=== PATIENT | female | born 1930 | race Caucasian/White ===

== ENCOUNTER 2017-12-05 11:04 | Observation (INO) | payer MEDICARE, BC ==
--- NOTE | 2017-12-05 12:09 | EDM.PDOC ---
ED HPI GENERAL MEDICAL PROBLEM - General Chief Complaint: General Stated Complaint: SOB/RETAINING FLUID/BREASTS OOZING Time Seen by Provider: 12/05/17 12:03 Source of Information: Reports: Patient History Limitations: Reports: No Limitations - History of Present Illness INITIAL COMMENTS - FREE TEXT/NARRATIVE: pt arrived with a increase in sob and having induration in the left breast. She has gotten much weaker Pt has drainage coming from the breast. She has pain in left elebow. Onset: Gradual, Other ( According to the family they feel this was not apparent 2 weeks ago. ) Duration: Day(s): Location: Reports: Other (pt is very sob and she has increasd swelling f thr legs. ) Associated Symptoms: Reports: Shortness of Breath, Weakness - Related Data Allergies Allergy/AdvReac Type Severity Reaction Status Date / Time No Known Allergies Allergy Verified 12/05/17 11:33 Home Meds: Home Meds Albuterol [Proair HFA] 1 - 2 puff IH Q4H PRN 09/06/15 [History] Aspirin [Ecotrin] 81 mg PO QAM 09/06/15 [History] Calcium Carbonate/Vitamin D3 [Calcium 500-Vit D3 200 Caplet] 1 tab PO BID [History] Lisinopril 20 mg PO QAM 09/06/15 [History] Metoprolol Succinate [Toprol XL 100mg] 100 mg PO QAM 09/06/15 [History] Furosemide [Lasix] 40 mg PO DAILY #30 tablet 12/06/17 [Rx] LORazepam [Ativan ORAL Concentrate 1MG/0.5 ML U/D] 0.5 mg PO Q2H PRN #15 ml [Rx] Melatonin 9 mg PO BEDTIME #90 tablet 12/06/17 [Rx] Morphine [Morphine 10 MG/0.5 ML Oral Syringe] 2.5 - 5 mg SL Q1H PRN #15 ml 12/06 [Rx] Past Medical History HEENT History: Reports: Impaired Vision, Macular Degeneration Other Respiratory History: o2 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: , Other (See Below) Other OB/BYN History: hysterectomy Musculoskeletal History: Reports: Arthritis Other Musculoskeletal History: hands arthritic Psychiatric History: Reports: Anxiety, Depression - Past Surgical History HEENT Surgical History: Reports: Cataract Surgery, Other (See Below) Other HEENT Surgeries/Procedures: two eye surgeries and receives shots in her left eye Social & Family History - Tobacco Use Smoking Status *Q: Former Smoker Years of Tobacco use: 60 Packs/Tins Daily: 1 Used Tobacco, but Quit: Yes Month Tobacco Last Used: 8 years ago Second Hand Smoke Exposure: No - Caffeine Use Caffeine Use: Reports: None - Recreational Drug Use Recreational Drug Use: No ED ROS GENERAL - Review of Systems Review Of Systems: See Below Constitutional: Reports: Weakness HEENT: Reports: No Symptoms Respiratory: Reports: Shortness of Breath, Cough Cardiovascular: Reports: No Symptoms Endocrine: Reports: No Symptoms GI/Abdominal: Reports: No Symptoms : Reports: No Symptoms Musculoskeletal: Reports: No Symptoms Skin: Reports: No Symptoms Neurological: Reports: No Symptoms Psychiatric: Reports: Depression, Other ( sleeping lot. ) ED EXAM, GENERAL - Physical Exam Exam: See Below Free Text/Narrative:: pt arrived with increased sob. She has a red appearing left breast which is hard and indurated. She has been much weaker and she is sleeping alot. Exam Limited By: Other (pt is not able to give alot of history.) General Appearance: Alert, Moderate Distress Ears: Normal TMs Nose: Normal Inspection Throat/Mouth: Normal Inspection Head: Atraumatic Neck: Normal Inspection Respiratory/Chest: Other (pt has a large breast mass which is firm and indurated. it does feel warm and looks redish. ) Cardiovascular: Regular Rate, Rhythm GI/Abdominal: Soft, Non-Tender, Other (pt has been having looser stools. ) (Female) Exam: Deferred Rectal (Female) Exam: Deferred Back Exam: Normal Inspection Extremities: Pedal Edema Neurological: Alert, Oriented, Normal Cognition, Other (pt falls asleep easily. ) Psychiatric: Depressed Mood, Other ( sleeps alot. ) Course - Vital Signs Last Recorded V/S: Last Vital Signs Temp 36.9 C 12/07/17 11:00 Pulse 80 12/07/17 11:00 Resp 18 12/07/17 11:00 BP 118/64 12/07/17 11:00 Pulse Ox 94 L 12/07/17 11:00 - Orders/Labs/Meds Labs: Laboratory Tests 12/05/17 12/05/17 12/05/17 Range/Units 11:45 11:47 11:47 WBC 11.3 H (4.5-11.0) K/uL RBC 3.93 (3.30-5.50) M/uL Hgb 12.3 (12.0-15.0) g/dL Hct 38.6 (36.0-48.0) % MCV 98 (80-98) fL MCH 31 (27-31) pg MCHC 32 (32-36) % Plt Count 330 (150-400) K/uL Neut % (Auto) 85 H (36-66) % Lymph % (Auto) 10 L (24-44) % [place] % (Auto) 5 (2-6) % Eos % (Auto) 0 L (2-4) % Baso % (Auto) 0 (0-1) % Puncture Site ABG pH (7.350-7.450) ABG pCO2 (35.0-42.0) mmHg ABG pO2 (75.0-100.0) mmHg ABG HCO3 (22.0-26.0) mmol/L ABG Total CO2 (21.0-25.0) mmol/L ABG O2 Saturation (95.0-98.0) % ABG O2 Content (15.0-23.0) %vol ABG Base Excess mm/L ABG Hemoglobin (12.0-16.0) g/dL ABG Oxyhemoglobin % ABG Carboxyhemoglobin (0.0-1.6) % ABG Methemoglobin % [place] Test O2 Delivery Device Oxygen Flow Rate L Sodium 143 (140-148) mmol/L Potassium 4.7 (3.6-5.2) mmol/L Chloride 108 (100-108) mmol/L Carbon Dioxide 31 (21-32) mmol/L Anion Gap 3.7 L (5.0-14.0) mmol/L BUN 56 H (7-18) mg/dL Creatinine 2.1 H (0.6-1.0) mg/dL Est Cr Clr Drug Dosing 15.68 mL/min Estimated GFR (MDRD) 22 L (>60) Glucose 124 H (74-106) mg/dL Calcium 11.1 H (8.5-10.1) mg/dL Total Bilirubin 0.3 (0.2-1.0) mg/dL AST 44 H (15-37) U/L ALT 37 (12-78) U/L Alkaline Phosphatase 74 (46-116) U/L C-Reactive Protein 4.01 H (0.0-0.3) mg/dL NT-Pro-B Natriuret Pep 2825 H (5-450) pg/mL Total Protein 6.4 (6.4-8.2) g/dL Albumin 2.8 L (3.4-5.0) g/dL Globulin 3.6 H (2.3-3.5) g/dL Albumin/Globulin Ratio 0.8 L (1.2-2.2) 12/05/17 Range/Units 12:41 WBC (4.5-11.0) K/uL RBC (3.30-5.50) M/uL Hgb (12.0-15.0) g/dL Hct (36.0-48.0) % MCV (80-98) fL MCH (27-31) pg MCHC (32-36) % Plt Count (150-400) K/uL Neut % (Auto) (36-66) % Lymph % (Auto) (24-44) % [place] % (Auto) (2-6) % Eos % (Auto) (2-4) % Baso % (Auto) (0-1) % Puncture Site Rt radial ABG pH 7.343 L (7.350-7.450) ABG pCO2 59.2 H (35.0-42.0) mmHg ABG pO2 80.8 (75.0-100.0) mmHg ABG HCO3 31.3 H (22.0-26.0) mmol/L ABG Total CO2 28.8 H (21.0-25.0) mmol/L ABG O2 Saturation 95.1 (95.0-98.0) % ABG O2 Content 15.7 (15.0-23.0) %vol ABG Base Excess 4.7 mm/L ABG Hemoglobin 11.8 L (12.0-16.0) g/dL ABG Oxyhemoglobin 93.8 % ABG Carboxyhemoglobin 0.8 (0.0-1.6) % ABG Methemoglobin 0.6 % [place] Test Pass O2 Delivery Device Nasal cannula Oxygen Flow Rate 2 L Sodium (140-148) mmol/L Potassium (3.6-5.2) mmol/L Chloride (100-108) mmol/L Carbon Dioxide (21-32) mmol/L Anion Gap (5.0-14.0) mmol/L BUN (7-18) mg/dL Creatinine (0.6-1.0) mg/dL Est Cr Clr Drug Dosing mL/min Estimated GFR (MDRD) (>60) Glucose (74-106) mg/dL Calcium (8.5-10.1) mg/dL Total Bilirubin (0.2-1.0) mg/dL AST (15-37) U/L ALT (12-78) U/L Alkaline Phosphatase (46-116) U/L C-Reactive Protein (0.0-0.3) mg/dL NT-Pro-B Natriuret Pep (5-450) pg/mL Total Protein (6.4-8.2) g/dL Albumin (3.4-5.0) g/dL Globulin (2.3-3.5) g/dL Albumin/Globulin Ratio (1.2-2.2) Meds: Medications Discontinued Medications Generic Name Dose Route Start Last Admin Trade Name Freq PRN Reason Stop Dose Admin Acetaminophen 650 mg 12/05/17 15:50 Tylenol PO Q4H PRN Pain (Mild 1-3)/fever Albuterol 2.5 mg 12/05/17 15:50 12/06/17 02:19 Proventil Neb Soln NEB 2.5 mg Q4H PRN Administration Shortness Of Breath/wheezing Aspirin 81 mg 12/06/17 09:00 12/07/17 08:40 Halfprin PO 81 mg QAM AIMEE Administration Furosemide 60 mg 12/05/17 12:25 12/05/17 12:51 Lasix IVPUSH 12/05/17 12:26 60 mg ONETIME ONE Administration Furosemide 60 mg 12/06/17 08:00 12/06/17 08:42 Lasix IVPUSH 12/06/17 08:01 60 mg ONETIME ONE Administration Furosemide 40 mg 12/07/17 09:00 12/07/17 08:41 Lasix PO 40 mg DAILY AIMEE Administration Lisinopril 20 mg 12/06/17 09:00 12/07/17 08:41 Prinivil PO 20 mg QAM AIMEE Administration Lorazepam 0.5 mg 12/05/17 15:50 12/05/17 22:16 Ativan Oral Concentrate 1mg/0.5 Ml U/D PO 0.5 mg Q2H PRN Administration Anxiety Magnesium Hydroxide 30 ml 12/05/17 15:50 Milk Of Magnesia PO Q12H PRN Constipation Melatonin 9 mg 12/06/17 21:00 12/06/17 22:22 Melatonin PO 9 mg BEDTIME AIMEE Administration Metoprolol Succinate 100 mg 12/06/17 09:00 12/06/17 13:33 Toprol Xl PO Not Given QAM AIMEE Morphine Sulfate 0 mg 12/05/17 15:50 12/06/17 23:57 Morphine 10 Mg/0.5 Ml Oral Syringe PO 5 mg Q1H PRN Administration Pain Ondansetron HCl 4 mg 12/05/17 15:50 Zofran Odt PO Q6H PRN Nausea able to take PO Metoprolol Succinate 0 each 12/07/17 09:00 12/07/17 08:41 100 Mg Tab.ErPom* PO 1 each * QAM AIMEE Administration Polyethylene Glycol 17 gm 12/05/17 15:50 Miralax PO DAILY PRN Constipation Senna/Docusate Sodium 1 tab 12/05/17 15:50 Senna Plus PO BID PRN Constipation Sodium Chloride 10 ml 12/05/17 12:24 12/05/17 12:50 Saline Flush FLUSH 10 ml ASDIRECTED PRN Administration Keep Vein Open Sodium Chloride 10 ml 12/05/17 15:50 Saline Flush FLUSH ASDIRECTED PRN Keep Vein Open - Re-Assessments/Exams Free Text/Narrative Re-Assessment/Exam: 12/05/17 13:04 pt has increased creatnine at 2.1. She has a chest xray which is difficult to evaluate because of the large breast mass. a lateral will be obtained. She has a high bnp and she has the borderline renal funtion. Her crp is elevated. 12/05/17 13:08 Departure - Departure Time of Disposition: 13:10 Disposition: Admitted As Inpatient 64 Condition: Fair Clinical Impression: Breast CA, CHF (congestive heart failure), Renal insufficiency - Discharge Information
[2017-12-05] MEDS ORDERED: Sodium Chloride 0.9% 10 ML Syringe FLUSH PRN ×2 (12:24→15:50)
[2017-12-05] MEDS ORDERED: Furosemide 40 MG/4 ML VIAL IVPUSH ONE (12:25)
[2017-12-05] MEDS ORDERED: Magnesium Hydroxide 400 MG/5 ML Susp 30 ML Cup PO PRN (15:50)
[2017-12-05] MEDS ORDERED: Polyethylene Glycol 3350 Powder 17 GM Packet PO PRN (15:50)
[2017-12-05] MEDS ORDERED: LORazepam ORAL Concentrate 1MG/0.5ML U/D PO PRN (15:50)
[2017-12-05] MEDS ORDERED: Albuterol 0.083% 2.5 MG/3 ML Neb Soln NEB PRN (15:50)
[2017-12-05] MEDS ORDERED: Ondansetron 4 MG Tab.DIS PO PRN (15:50)
[2017-12-05] MEDS ORDERED: Acetaminophen 325 MG Tab PO PRN (15:50)
--- NOTE | 2017-12-05 15:52 | PCM.HP ---
H&P History of Present Illness - General Date of Service: 12/05/17 Admit Problem/Dx: Admission Diagnosis/Problem Admission Diagnosis/Problem Edema Source of Information: Patient, Family, Provider, RN Notes Reviewed History Limitations: Reports: No Limitations - History of Present Illness Initial Comments - Free Text/Narative: Ms. Cruz is an 87-year-old woman who is admitted through the emergency department to observation status for management of probable breast cancer and fluid overload. She has noted fairly rapid development of inflammation and induration of both breasts, worse on the left. She has developed erythema over the anterior aspect of the breast, drainage from the nipple, stippling of the skin, in the area of necrosis on the inferior aspect of the breast. Similar changes are present on the right breast but more mild. These changes have occurred relatively rapidly and during the past 2 weeks also his developed increase in peripheral edema with shortness of breath. She was brought into the emergency department for further evaluation, white blood cell count is modestly elevated, chest x-ray shows a fairly large left pleural effusion. I discussed these findings with patient and her daughter who is also present, patient does not want to consider further aggressive evaluation or intervention. Her overriding concern is that she be kept comfortable and be able to return home as soon as possible. Plan will be for observation admission with comfort cares only, medication as needed for comfort and hospice admission after discharge. - Related Data Allergies/Adverse Reactions: Allergies Allergy/AdvReac Type Severity Reaction Status Date / Time No Known Allergies Allergy Verified 12/05/17 11:33 Home Medications: Home Meds Albuterol [Proair HFA] 1 - 2 puff IH Q4H PRN 09/06/15 [History] Aspirin [Ecotrin] 81 mg PO QAM 09/06/15 [History] Calcium Carbonate/Vitamin D3 [Calcium 500 + Vit D 200 Caplet] 1 tab PO BID 09/06 [History] Ibuprofen 400 mg PO Q6H PRN 09/06/15 [History] Lisinopril [Lisinopril] 20 mg PO QAM 09/06/15 [History] Metoprolol Succinate [Toprol XL 100mg] 100 mg PO QAM 09/06/15 [History] Multivitamin [Daily [place]] 1 tab PO QAM 09/06/15 [History] Simvastatin [Zocor] 40 mg PO BEDTIME 09/06/15 [History] Past Medical History HEENT History: Reports: Impaired Vision, Macular Degeneration Other Respiratory History: o2 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: , Other (See Below) Other OB/BYN History: hysterectomy Musculoskeletal History: Reports: Arthritis Other Musculoskeletal History: hands arthritic Psychiatric History: Reports: Anxiety, Depression - Past Surgical History HEENT Surgical History: Reports: Cataract Surgery, Other (See Below) Other HEENT Surgeries/Procedures: two eye surgeries and receives shots in her left eye Social & Family History - Tobacco Use Smoking Status *Q: Former Smoker Years of Tobacco use: 60 Packs/Tins Daily: 1 Used Tobacco, but Quit: Yes Month Tobacco Last Used: 8 years ago Second Hand Smoke Exposure: No - Caffeine Use Caffeine Use: Reports: None - Recreational Drug Use Recreational Drug Use: No H&P Review of Systems - Review of Systems: Review Of Systems: See Below General: Reports: Malaise, Weakness, Decreased Appetite. Denies: Fever, Chills HEENT: Reports: No Symptoms Pulmonary: Reports: Shortness of Breath. Denies: Wheezing, Pleuritic Chest Pain , Cough, Sputum Cardiovascular: Reports: Dyspnea on Exertion. Denies: Chest Pain, Palpitations , Orthopnea, PND, Edema, Lightheadedness Gastrointestinal: Reports: No Symptoms Genitourinary: Reports: No Symptoms Musculoskeletal: Reports: No Symptoms Skin: Reports: No Symptoms Psychiatric: Reports: No Symptoms Neurological: Reports: No Symptoms Hematologic/Lymphatic: Reports: No Symptoms Immunologic: Reports: No Symptoms Exam - Exam Exam: See Below - Vital Signs Vital Signs: Last Vital Signs Temp 96.6 F 12/05/17 15:36 Pulse 66 12/05/17 15:36 Resp 16 12/05/17 15:36 BP 128/59 L 12/05/17 15:36 Pulse Ox 92 L 12/05/17 15:36 Weight: 138 lb - Exam Quality Assessment: Supplemental Oxygen. No: DVT Prophylaxis General: Cooperative, Mild Distress, Lethargic HEENT: Conjunctiva Clear, Hearing Intact, Mucosa Moist & [place], Normal Nasal Septum, Posterior Pharynx Clear, Pupils Equal Neck: Supple, Trachea Midline, +2 Carotid Pulse wo Bruit Lungs: Decreased Breath Sounds (Left base). No: Rales, Rhonchi, Wheezing Cardiovascular: Regular Rate, Regular Rhythm, Normal S1, Normal S2, Systolic Murmur. No: Diastolic Murmur GI/Abdominal Exam: Soft, Non-Tender, No Organomegaly, No Distention Back Exam: Normal Inspection, Full Range of Motion Extremities: Non-Tender, Pedal Edema Skin: Other (Erythema anterior aspect the left breast with palpable induration and a 1 cm area of necrosis just inferior to the left nipple. There is significant stippling of the skin of the left breast as well as the right breast and palpable induration of the right breast as well.) Neurological: Cranial Nerves Intact, Strength Equal Bilateral, Normal Speech, Normal Tone, Sensation Intact. No: Focal Deficit Neuro Extensive - Mental Status: Oriented x3, Normal Cognition, Memory Intact - Patient Data Lab Results Last 24 hrs: Laboratory Results - last 24 hr 12/05/17 Range/Units 15:20 Urine Color Yellow Urine Appearance Clear Urine pH 5.0 (4.5-8.0) Ur Specific [place] 1.005 L (1.008-1.030) Urine Protein Negative (NEGATIVE) mg/dL Urine Glucose (UA) Normal (NEGATIVE) mg/dL Urine Ketones Negative (NEGATIVE) mg/dL Urine Occult Blood Negative (NEGATIVE) Urine Nitrite Negative (NEGATIVE) Urine Bilirubin Negative (NEGATIVE) Urine Urobilinogen Normal (NORMAL) mg/dL Ur Leukocyte Esterase Negative (NEGATIVE) Urine RBC 0-5 (0-5) Urine WBC 0-5 (0-5) Ur Epithelial Cells Rare Amorphous Sediment Rare Urine Bacteria Rare Urine Mucus Not seen Result Diagrams: 12/05/17 11:47 12/05/17 11:47 *Q Meaningful Use (ADM) - VTE *Q VTE Criteria *Q: VTE Pharmacological Contraindications *Q: Not Candidate LT Anticoag - VTE Risk Assess *Q Each Risk Factor Represents 1 Point: Swollen Legs, Current, Serious lung disease including pneumonia Total Score 1 Point Risk Factors: 2 Each Risk Factor Represents 2 Points: Malignancy (present or previous) Total Score 2 Point Risk Factors: 2 Each Risk Factor Represents 3 Points: Age 75 Years or Greater Total Score 3 Point Risk Factors: 3 Each Risk Factor Represents 5 Points: None Total Score 5 Point Risk Factors: 0 Venous Thromboembolism Risk Factor Score *Q: 7 - Stroke *Q Stroke Criteria *Q: - AMI *Q AMI Criteria *Q: Problem List Initiated/Reviewed/Updated: Yes Orders Last 24hrs: Active Orders 24 hr Category Date Time Status Patient Status [ADT] Routine ADT 12/05/17 15:50 Active Height and Weight [RC] DAILY Care 12/05/17 15:50 Active Intake and Output [RC] QSHIFT Care 12/05/17 15:50 Active Notify Provider Vital Signs [RC] ASDIRECTED Care 12/05/17 15:50 Active Oxygen Therapy [RC] PRN Care 12/05/17 15:50 Active RT Aerosol Therapy [RC] ASDIRECTED Care 12/05/17 15:50 Active Up With Assistance [RC] ASDIRECTED Care 12/05/17 15:50 Active Up to Chair [RC] QID Care 12/05/17 15:50 Active VTE/DVT Education [RC] Per Unit Routine Care 12/05/17 15:50 Active Vital Signs [RC] Q4H Care 12/05/17 15:50 Active Consult to Hospice [CONS] Routine Cons 12/05/17 15:50 Active 2 Gram Sodium Diet [DIET] Diet 12/05/17 Lunch Active Acetaminophen [Tylenol] Med 12/05/17 15:50 Ordered 650 mg PO Q4H PRN Albuterol [Proventil Neb Soln] Med 12/05/17 15:50 Ordered 2.5 mg NEB Q4H PRN Docusate Sodium/Sennosides [Senna Plus] Med 12/05/17 15:50 Ordered 1 tab PO BID PRN Furosemide [Lasix] Med 12/06/17 08:00 Once 60 mg IVPUSH ONETIME ONE LORazepam [Ativan ORAL Concentrate 1MG/0.5 ML U/D] Med 12/05/17 15:50 Ordered 0.5 mg PO Q2H PRN Magnesium Hydroxide [Milk of Magnesia] Med 12/05/17 15:50 Ordered 30 ml PO Q12H PRN Morphine [Morphine 10 MG/0.5 ML Oral Syringe] Med 12/05/17 15:50 Ordered See Dose Instructions PO Q1H PRN Ondansetron [Zofran ODT] Med 12/05/17 15:50 Ordered 4 mg PO Q6H PRN Polyethylene Glycol 3350 [MiraLAX] Med 12/05/17 15:50 Ordered 17 gm PO DAILY PRN Sodium Chloride 0.9% [Saline Flush] Med 12/05/17 15:50 Ordered 10 ml FLUSH ASDIRECTED PRN Saline Lock Insert [OM.PC] Routine Oth 12/05/17 15:50 Ordered VTE Pharmacological Contraindications [AST] Per Unit Oth 12/05/17 15:50 Ordered Routine Resuscitation Status Routine Resus Stat 12/05/17 14:34 Ordered Medication Orders Acetaminophen (Tylenol) 650 mg PO Q4H PRN PRN Reason: Pain (Mild 1-3)/fever Albuterol (Proventil Neb Soln) 2.5 mg NEB Q4H PRN PRN Reason: Shortness Of Breath/wheezing Aspirin (Halfprin) 81 mg PO QAM AIMEE Furosemide (Lasix) 60 mg IVPUSH ONETIME ONE Stop: 12/06/17 08:01 Lisinopril (Prinivil) 20 mg PO QAM AIMEE Lorazepam (Ativan Oral Concentrate 1mg/0.5 Ml U/D) 0.5 mg PO Q2H PRN PRN Reason: Anxiety Magnesium Hydroxide (Milk Of Magnesia) 30 ml PO Q12H PRN PRN Reason: Constipation Morphine Sulfate (Morphine 10 Mg/0.5 Ml Oral Syringe) 0 mg PO Q1H PRN PRN Reason: Pain Non-Formulary Medication (Metoprolol Succinate [Toprol Xl 100mg]) 100 mg PO QAM AIMEE Ondansetron HCl (Zofran Odt) 4 mg PO Q6H PRN PRN Reason: Nausea able to take PO Polyethylene Glycol (Miralax) 17 gm PO DAILY PRN PRN Reason: Constipation Senna/Docusate Sodium (Senna Plus) 1 tab PO BID PRN PRN Reason: Constipation Sodium Chloride (Saline Flush) 10 ml FLUSH ASDIRECTED PRN PRN Reason: Keep Vein Open Assessment/Plan Comment:: ASSESSMENT AND PLAN PROBABLE INFLAMMATORY BREAST CANCER-relatively rapid onset significant inflammation involving the left breast, erythema with induration and stippling of the skin, area of necrosis inferior to the nipple. Associated with more mild changes in the right breast and a relatively large left pleural effusion. Discussed with patient and family, she wants comfort cares only at this time with no further evaluation or intervention. -Morphine as needed for pain -Lorazepam as needed for anxiety and/or agitation -Hospice consult and plan for admission to hospice after discharge. LEFT PLEURAL EFFUSION-likely secondary to underlying malignancy -Symptom management as above PERIPHERAL EDEMA-of relatively recent onset, likely related to malignancy and chronic kidney disease -IV furosemide given in ED -Furosemide 60 mg IV in a.m. CHRONIC KIDNEY DISEASE STAGE IV PALLIATIVE CARE-patient does not want further aggressive evaluation or intervention -Management as above MAINTENANCE ISSUES -DVT prophylaxis; not indicated, comfort cares only -GI prophylaxis; not indicated -Palmer catheter; not indicated -Nutrition; regular diet as tolerated -Nicotine dependence; not required CODE STATUS-DNR/DNI, comfort cares only ADMISSION STATUS-this patient will be admitted to observation status, expect no more than a one night hospital stay for evaluation and management of problems as outlined above. DISPOSITION-anticipate discharge to home with hospice PRIMARY CARE PROVIDER-Kelsey Santana
[2017-12-06] MEDS ORDERED: Furosemide 100 MG/10 ML SDV IVPUSH ONE (08:00)
[2017-12-06] MEDS ORDERED: Metoprolol Succinate 50 MG Tab.ER PO SCH (09:00)
[2017-12-06] MEDS: Morphine 10 MG/0.5 ML Oral Syringe PO PRN ×5 (10:00→23:57)
--- NOTE | 2017-12-06 12:42 | PCM.PN ---
- General Info Date of Service: 12/06/17 Subjective Update: Ms. Cruz has been stable since admission yesterday, currently reports that her pain is well controlled. She did have mild to moderate delirium during the night, that seems to resolved now that her family is here. She is been seen and evaluated by hospice staff and current plan is for discharge to home tomorrow with hospice care. Functional Status: Reports: Pain Controlled, Urinating - Review of Systems General: Denies: Fever, Fatigue, Chills Pulmonary: Reports: No Symptoms Cardiovascular: Reports: No Symptoms Gastrointestinal: Reports: No Symptoms - Patient Data Vitals - Most Recent: Last Vital Signs Temp 96.6 F 12/06/17 07:48 Pulse 73 12/06/17 07:48 Resp 16 12/06/17 07:48 BP 125/72 12/06/17 08:42 Pulse Ox 91 L 12/06/17 07:48 Weight - Most Recent: 138 lb 8 oz I&O - Last 24 Hours: Intake & Output 12/05/17 12/06/17 12/06/17 22:59 06:59 14:59 Output Total 250 300 Balance -250 -300 Lab Results Last 24 Hours: Laboratory Results - last 24 hr 12/05/17 Range/Units 15:20 Urine Color Yellow Urine Appearance Clear Urine pH 5.0 (4.5-8.0) Ur Specific Palmer 1.005 L (1.008-1.030) Urine Protein Negative (NEGATIVE) mg/dL Urine Glucose (UA) Normal (NEGATIVE) mg/dL Urine Ketones Negative (NEGATIVE) mg/dL Urine Occult Blood Negative (NEGATIVE) Urine Nitrite Negative (NEGATIVE) Urine Bilirubin Negative (NEGATIVE) Urine Urobilinogen Normal (NORMAL) mg/dL Ur Leukocyte Esterase Negative (NEGATIVE) Urine RBC 0-5 (0-5) Urine WBC 0-5 (0-5) Ur Epithelial Cells Rare Amorphous Sediment Rare Urine Bacteria Rare Urine Mucus Not seen Med Orders - Current: Current Medications Acetaminophen (Tylenol) 650 mg PO Q4H PRN PRN Reason: Pain (Mild 1-3)/fever Albuterol (Proventil Neb Soln) 2.5 mg NEB Q4H PRN PRN Reason: Shortness Of Breath/wheezing Last Admin: 12/06/17 02:19 Dose: 2.5 mg Aspirin (Halfprin) 81 mg PO QAM [facility] Furosemide (Lasix) 40 mg PO DAILY [facility] Lisinopril (Prinivil) 20 mg PO QAM [facility] Lorazepam (Ativan Oral Concentrate 1mg/0.5 Ml U/D) 0.5 mg PO Q2H PRN PRN Reason: Anxiety Last Admin: 12/05/17 22:16 Dose: 0.5 mg Magnesium Hydroxide (Milk Of Magnesia) 30 ml PO Q12H PRN PRN Reason: Constipation Morphine Sulfate (Morphine 10 Mg/0.5 Ml Oral Syringe) 0 mg PO Q1H PRN PRN Reason: Pain Last Admin: 12/06/17 12:00 Dose: 5 mg Ondansetron HCl (Zofran Odt) 4 mg PO Q6H PRN PRN Reason: Nausea able to take PO Metoprolol Succinate 100 Mg Tab.ErPom* * 0 each PO QAM [facility] Polyethylene Glycol (Miralax) 17 gm PO DAILY PRN PRN Reason: Constipation Senna/Docusate Sodium (Senna Plus) 1 tab PO BID PRN PRN Reason: Constipation Sodium Chloride (Saline Flush) 10 ml FLUSH ASDIRECTED PRN PRN Reason: Keep Vein Open Discontinued Medications Furosemide (Lasix) 60 mg IVPUSH ONETIME ONE Stop: 12/05/17 12:26 Last Admin: 12/05/17 12:51 Dose: 60 mg Furosemide (Lasix) 60 mg IVPUSH ONETIME ONE Stop: 12/06/17 08:01 Last Admin: 12/06/17 08:42 Dose: 60 mg Metoprolol Succinate (Toprol Xl) 100 mg PO QAM [facility] Sodium Chloride (Saline Flush) 10 ml FLUSH ASDIRECTED PRN PRN Reason: Keep Vein Open Last Admin: 12/05/17 12:50 Dose: 10 ml - Exam Quality Assessment: Supplemental Oxygen General: Alert, Cooperative, No Acute Distress Lungs: Clear to Auscultation, Normal Respiratory Effort, Decreased Breath Sounds (Left base) Cardiovascular: Regular Rate, Regular Rhythm, No Murmurs GI/Abdominal Exam: Soft, Non-Tender, No Organomegaly, No Distention Extremities: Non-Tender, Pedal Edema Skin: Warm, Dry - Problem List Review Problem List Initiated/Reviewed/Updated: Yes - My Orders Last 24 Hours: My Active Orders 12/05/17 14:34 Resuscitation Status Routine 12/05/17 15:50 Patient Status [ADT] Routine Height and Weight [RC] 0511 Intake and Output [RC] .PRN Notify Provider Vital Signs [RC] ASDIRECTED Oxygen Therapy [RC] PRN RT Aerosol Therapy [RC] ASDIRECTED Up With Assistance [RC] ASDIRECTED Up to Chair [RC] QID VTE/DVT Education [RC] Per Unit Routine Vital Signs [RC] Q4H Consult to Hospice [CONS] Routine Acetaminophen [Tylenol] 650 mg PO Q4H PRN Albuterol [Proventil Neb Soln] 2.5 mg NEB Q4H PRN Docusate Sodium/Sennosides [Senna Plus] 1 tab PO BID PRN LORazepam [Ativan ORAL Concentrate 1MG/0.5 ML U/D] 0.5 mg PO Q2H PRN Magnesium Hydroxide [Milk of Magnesia] 30 ml PO Q12H PRN Morphine [Morphine 10 MG/0.5 ML Oral Syringe] See Dose Instructions PO Q1H PRN Ondansetron [Zofran ODT] 4 mg PO Q6H PRN Polyethylene Glycol 3350 [MiraLAX] 17 gm PO DAILY PRN Sodium Chloride 0.9% [Saline Flush] 10 ml FLUSH ASDIRECTED PRN Saline Lock Insert [OM.PC] Routine VTE Pharmacological Contraindications [AST] Per Unit Routine 12/05/17 Lunch 2 Gram Sodium Diet [DIET] 12/07/17 09:00 Furosemide [Lasix] 40 mg PO DAILY Patient's Own Medication [Ptom] 0 each PO QAM - Plan Plan:: ASSESSMENT AND PLAN 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 Associated with more mild changes in the right breast and a relatively large left pleural effusion. Discussed with patient and family, she wants comfort cares only at this time with no further evaluation or intervention. Fairly stable since admission other than mild to moderate delirium. -Morphine as needed for pain -Lorazepam as needed for anxiety and/or agitation -Hospice consult and plan for admission to hospice after discharge. LEFT PLEURAL EFFUSION-likely secondary to underlying malignancy -Symptom management as above DELIRIUM -Melatonin 9 mg by mouth daily at bedtime PERIPHERAL EDEMA-of relatively recent onset, likely related to malignancy and chronic kidney disease -Furosemide 40 mg by mouth daily CHRONIC KIDNEY DISEASE STAGE IV PALLIATIVE CARE-patient does not want further aggressive evaluation or intervention -Management as above MAINTENANCE ISSUES -DVT prophylaxis; not indicated, comfort cares only -GI prophylaxis; not indicated -Palmer catheter; not indicated -Nutrition; regular diet as tolerated -Nicotine dependence; not required CODE STATUS-DNR/DNI, comfort cares only ADMISSION STATUS-this patient will be admitted to observation status, expect no more than a one night hospital stay for evaluation and management of problems as outlined above. DISPOSITION-anticipate discharge to home with hospice PRIMARY CARE PROVIDER-Kelsey Santana
[2017-12-06] MEDS: LISINOPRIL 20 MG PO SCH (13:08)
[2017-12-06] MEDS: Aspirin 81 MG Tab.EC**POM PO SCH (13:56)
--- NOTE | 2017-12-06 14:42 | PCM.DCSUM1 ---
Discharge Summary - Hospital Course Brief History: Ms. Cruz is an 87-year-old woman who was admitted through the emergency department observation status with recent decline likely secondary to inflammatory breast cancer and malignant pleural effusion. - Discharge Data Discharge Date: 12/07/17 Discharge Disposition: DC/Tfer to Hospice - Home 50 Condition: Good - Discharge Diagnosis/Problem(s) (1) Inflammatory breast carcinoma SNOMED Code(s): 888396516 ICD Code: C50.919 - MALIGNANT NEOPLASM OF UNSP SITE OF UNSPECIFIED FEMALE BREAST Status: Acute Current Visit: Yes (2) Malignant pleural effusion SNOMED Code(s): 19720611 ICD Code: J91.0 - MALIGNANT PLEURAL EFFUSION Status: Acute Current Visit : Yes (3) CKD (chronic kidney disease) stage 4, GFR 15-29 ml/min SNOMED Code(s): 509768406 ICD Code: N18.4 - CHRONIC KIDNEY DISEASE, STAGE 4 (SEVERE) Status: Acute Current Visit: Yes (4) Peripheral edema SNOMED Code(s): 206392507 ICD Code: R60.9 - EDEMA, UNSPECIFIED Status: Acute Current Visit: Yes - Patient Summary/Data Consults: Consultations 12/05/17 15:50 Consult to Hospice [CONS] Routine Comment: Physician Instructions: Reason for Consult: Inflammatory breast cancer Hospital Course: Ms. Cruz is an 87-year-old woman who was admitted through the emergency department to observation status for management of probable breast cancer and and malignant pleural effusion. She had noted fairly rapid development of inflammation and induration of both breasts, worse on the left. She has developed erythema over the anterior aspect of the breast, drainage from the nipple, stippling of the skin, and a area of necrosis on the inferior aspect of the breast. Similar changes are present on the right breast but more mild. These changes have occurred relatively rapidly and during the past 2 weeks also has developed increase in peripheral edema with shortness of breath. She was brought into the emergency department for further evaluation, white blood cell count is modestly elevated, chest x-ray shows a fairly large left pleural effusion. I discussed these findings with patient and her daughter who was also present, patient does not want to consider further aggressive evaluation or intervention. Her overriding concern is that she be kept comfortable and be able to return home as soon as possible. Ms. Cruz was admitted to observation status, no further aggressive evaluation or interventions were performed per her request. She was given IV Lasix on admission and the following morning with good result in improvement in her shortness of breath as well as peripheral edema. She will be transitioned to oral Lasix 40 mg daily. Sublingual morphine and lorazepam were used as needed for comfort. The second hospital day she was seen and evaluated by hospice staff and felt to be appropriate for hospice admission. She will be discharged to home with hospice admission to occur after discharge. Management will be for comfort only. - Patient Instructions Diet: Low Sodium Activity: As Tolerated Other/Special Instructions: Discharge to home with hospice admission. - Discharge Plan Prescriptions/Med Rec: Furosemide [Lasix] 40 mg PO DAILY #30 tablet LORazepam [Ativan ORAL Concentrate 1MG/0.5 ML U/D] 0.5 mg PO Q2H PRN #15 ml PRN Reason: Anxiety Melatonin 9 mg PO BEDTIME #90 tablet Morphine [Morphine 10 MG/0.5 ML Oral Syringe] 2.5 - 5 mg SL Q1H PRN #15 ml PRN Reason: Pain Home Medications: Home Meds Albuterol [Proair HFA] 1 - 2 puff IH Q4H PRN 09/06/15 [History] Aspirin [Ecotrin] 81 mg PO QAM 09/06/15 [History] Calcium Carbonate/Vitamin D3 [Calcium 500-Vit D3 200 Caplet] 1 tab PO BID [History] Lisinopril 20 mg PO QAM 09/06/15 [History] Metoprolol Succinate [Toprol XL 100mg] 100 mg PO QAM 09/06/15 [History] Furosemide [Lasix] 40 mg PO DAILY #30 tablet 12/06/17 [Rx] LORazepam [Ativan ORAL Concentrate 1MG/0.5 ML U/D] 0.5 mg PO Q2H PRN #15 ml [Rx] Melatonin 9 mg PO BEDTIME #90 tablet 12/06/17 [Rx] Morphine [Morphine 10 MG/0.5 ML Oral Syringe] 2.5 - 5 mg SL Q1H PRN #15 ml 12/06 [Rx] Forms: ED Department Discharge Referrals: Kelsey Santana NP [Primary Care Provider] - - Patient Data Vitals - Most Recent: Last Vital Signs Temp 96.7 F 12/06/17 13:01 Pulse 70 12/06/17 13:01 Resp 16 12/06/17 13:01 BP 94/55 L 12/06/17 13:08 Pulse Ox 97 12/06/17 13:01 Weight - Most Recent: 138 lb 8 oz I&O - Last 24 hours: Intake & Output 12/05/17 12/06/17 12/06/17 22:59 06:59 14:59 Intake Total 240 Output Total 250 600 Balance -250 -360 Lab Results - Last 24 hrs: Laboratory Results - last 24 hr 12/05/17 Range/Units 15:20 Urine Color Yellow Urine Appearance Clear Urine pH 5.0 (4.5-8.0) Ur Specific Thelma 1.005 L (1.008-1.030) Urine Protein Negative (NEGATIVE) mg/dL Urine Glucose (UA) Normal (NEGATIVE) mg/dL Urine Ketones Negative (NEGATIVE) mg/dL Urine Occult Blood Negative (NEGATIVE) Urine Nitrite Negative (NEGATIVE) Urine Bilirubin Negative (NEGATIVE) Urine Urobilinogen Normal (NORMAL) mg/dL Ur Leukocyte Esterase Negative (NEGATIVE) Urine RBC 0-5 (0-5) Urine WBC 0-5 (0-5) Ur Epithelial Cells Rare Amorphous Sediment Rare Urine Bacteria Rare Urine Mucus Not seen Med Orders - Current: Current Medications Acetaminophen (Tylenol) 650 mg PO Q4H PRN PRN Reason: Pain (Mild 1-3)/fever Albuterol (Proventil Neb Soln) 2.5 mg NEB Q4H PRN PRN Reason: Shortness Of Breath/wheezing Last Admin: 12/06/17 02:19 Dose: 2.5 mg Aspirin (Halfprin) 81 mg PO QAM [facility] Last Admin: 12/06/17 13:56 Dose: 81 mg Furosemide (Lasix) 40 mg PO DAILY [facility] Lisinopril (Prinivil) 20 mg PO QAM [facility] Last Admin: 12/06/17 13:08 Dose: Not Given Lorazepam (Ativan Oral Concentrate 1mg/0.5 Ml U/D) 0.5 mg PO Q2H PRN PRN Reason: Anxiety Last Admin: 12/05/17 22:16 Dose: 0.5 mg Magnesium Hydroxide (Milk Of Magnesia) 30 ml PO Q12H PRN PRN Reason: Constipation Melatonin (Melatonin) 9 mg PO BEDTIME [facility] Morphine Sulfate (Morphine 10 Mg/0.5 Ml Oral Syringe) 0 mg PO Q1H PRN PRN Reason: Pain Last Admin: 12/06/17 13:57 Dose: 10 mg Ondansetron HCl (Zofran Odt) 4 mg PO Q6H PRN PRN Reason: Nausea able to take PO Metoprolol Succinate 100 Mg Tab.ErPom* * 0 each PO QAM [facility] Polyethylene Glycol (Miralax) 17 gm PO DAILY PRN PRN Reason: Constipation Senna/Docusate Sodium (Senna Plus) 1 tab PO BID PRN PRN Reason: Constipation Sodium Chloride (Saline Flush) 10 ml FLUSH ASDIRECTED PRN PRN Reason: Keep Vein Open Discontinued Medications Furosemide (Lasix) 60 mg IVPUSH ONETIME ONE Stop: 12/05/17 12:26 Last Admin: 12/05/17 12:51 Dose: 60 mg Furosemide (Lasix) 60 mg IVPUSH ONETIME ONE Stop: 12/06/17 08:01 Last Admin: 12/06/17 08:42 Dose: 60 mg Metoprolol Succinate (Toprol Xl) 100 mg PO QAM [facility] Last Admin: 12/06/17 13:33 Dose: Not Given Sodium Chloride (Saline Flush) 10 ml FLUSH ASDIRECTED PRN PRN Reason: Keep Vein Open Last Admin: 12/05/17 12:50 Dose: 10 ml *Q Meaningful Use (DIS) - VTE *Q VTE Criteria *Q: VTE Pharmacological Contraindications *Q: Not Candidate LT Anticoag - Stroke *Q Stroke Criteria *Q: - AMI *Q AMI Criteria *Q:
[2017-12-06] MEDS ORDERED: Melatonin 3 MG Tab PO SCH (21:00)
[2017-12-07] MEDS: Aspirin 81 MG Tab.EC**POM PO SCH (08:40)
[2017-12-07] MEDS: LISINOPRIL 20 MG PO SCH (08:41)
[2017-12-07] MEDS ORDERED: Furosemide 40 MG Tab PO SCH (09:00)
[2017-12-07] MEDS ORDERED: METOPROLOL SUCCINATE 100 MG PO SCH (09:00)
--- NOTE | 2017-12-07 09:26 | CR ---
Chest 1V Frontal INDICATION: sob COMPARISON: None FINDINGS: AP portable chest. Cardiomegaly and mild CHF. Moderate-sized left pleural effusion.
--- NOTE | 2017-12-07 09:55 | CR ---
Elbow Min 3V Lt INDICATION: pain in left elbow. COMPARISON: None FINDINGS: 3 views. No fracture, dislocation, or other acute bony abnormality. No signs of joint e ffusion. No obvious degenerative change.
--- NOTE | 2017-12-07 09:56 | CR ---
Chest 2V INDICATION: need a lateral chest COMPARISON: Same day at 1207 hours FINDINGS: Two views. Cardiomegaly and left pleural effusion unchanged. Improvement in vascular con gestion.
[2017-12-07 11:22] VITALS: BP 118/64
== END 2017-12-07 13:02 | disposition hospice, home (50) ==
LOC: JP.ED 11:04 → JP.MS 14:31
PROVIDERS: ADMIT Hospitalist; ATTEND Hospitalist
DX: C50.919 Malignant neoplasm of unspecified site of unspecified female breast (principal); J91.0 Malignant pleural effusion; N18.4 Chronic kidney disease, stage 4 (severe); R60.9 Edema, unspecified; F41.9 Anxiety disorder, unspecified; F32.9 Major depressive disorder, single episode, unspecified; M19.042 Primary osteoarthritis, left hand; M19.041 Primary osteoarthritis, right hand; Z79.82 Long term (current) use of aspirin; Z79.899 Other long term (current) drug therapy; Z99.81 Dependence on supplemental oxygen; Z90.710 Acquired absence of both cervix and uterus; Z87.891 Personal history of nicotine dependence
CPT/HCPCS: 36415; 36600; 71045; 71046; 73080; 80053; 81001; 82803; 83880; 85025; 86140; 93005; 94640; 96374; 99285; A9270; J1940; J7050; 93010; 96376; 99217; 99219; 99224; G0378